=== PATIENT | female | born 1975 | race Caucasian/White ===

== ENCOUNTER 2016-10-15 09:53 | Emergency (ER) | payer OTHER ==
[~2016-10-15 09:53] MED LIST: ALBUTEROL 0.5ML INH; ALBUTEROL17 GM INH; AMOXICILLIN PO; AMOXIL500 MG PO; AUGMENTIN PO; AUGMENTIN875 M1 PO; AUGMENTIN875 MG PO; AZITHROMYCIN1 GM PO; BACLOFEN10 MG PO; BACTRIM 400-801 TA1 PO; CIPRO750 MG PO; DAKIN'S MODIF1000 ML TOP; DARVOCET-N 1001 TAB PO; FLEXERIL PO; HYDROCODON-ACE1 EAC7 PO; IBUPROFEN PO; IBUPROFEN800 MG PO; JANUVIA PO; LORTAB 5/500 TA1 TA2 PO; LORTAB 7.5-3251 EACH PO; MACROBID100 MG PO; NICOTINE TRANSD21 MG EXT; PHENERGAN VC W120 M1 PO; PHENERGAN25 MG PO; PREDNISONE PO; PROZAC PO; PROZAC10 M1 PO; PYRIDIUM PO; ROBITUSSIN A-C-S1 ML PO; SANTYL15 G1 TOP; SEROQUEL PO; SINGULAIR PO; TERAZOL 745 GM TOP; TESSALON200 MG PO; TRAMADOL HCL50 M1 PO; TRAZODONE HCL100 MG PO; ULTRAM ER100 MG PO; VICODIN 5/500 T1 TAB PO; VICODIN PO; VISTARIL50 MG PO; ZITHROMAX1 G/PKT PO; ZYRTEC PO
== END 2016-10-15 10:58 | disposition home or self-care (01) ==
LOC: CFTX 09:53 → CED 09:53 → CFTX 10:48
DX: H61.22 Impacted cerumen, left ear (principal); H65.92 Unspecified nonsuppurative otitis media, left ear; F41.9 Anxiety disorder, unspecified; J45.909 Unspecified asthma, uncomplicated; F32.9 Major depressive disorder, single episode, unspecified; I10 Essential (primary) hypertension; F17.210 Nicotine dependence, cigarettes, uncomplicated
CPT/HCPCS: 69209; 99283